=== PATIENT | female | born 1965 | race Two or more races ===

== ENCOUNTER 2016-10-14 20:29 | Emergency (ER) | payer MEDICAID, OTHER ==
[~2016-10-14] VITALS: Ht 160 cm; Wt 98.9 kg
[~2016-10-14 20:29] MED LIST: ARIP5TAB4 PO; CLON0.5T4 PO; ESTR-7 PO; ESTR1TAB9 PO; FLUO10TA PO; HYDR-3026 PO; NAPR500T3 PO; OMEP10CA4 PO; TRAZ150T75 PO
[2016-10-14] MEDS ORDERED: ONDANSETRON HCL/PF 4 MG/2 ML VIAL IVP ONE (21:00)
[2016-10-14] MEDS ORDERED: IV NS 0.9% 1,000 ML BAG IV ONE (21:00)
[2016-10-14] MEDS ORDERED: MORPHINE SULFATE INJ 2 MG/ML DISP.SYRIN IV ONE (21:00)
[2016-10-14] MEDS ORDERED: PIPERACILLIN /TAZOBACTAM 3.375 G in IV D5W 50 ML IV ONE (21:00)
[2016-10-14 21:11] LABS: BASOPHILS # (AUTO) 0.1 /CMM (0.0-0.2); BASOPHILS % (AUTO) 0.5 % (0.0-2.0); EOSINOPHILS # (AUTO) 0.2 /CMM (0.0-0.7); EOSINOPHILS % (AUTO) 2.1 % (0.0-6.0); HEMATOCRIT 45 % (33-45); HEMOGLOBIN 14.7 g/dL (11.5-14.8); LYMPHOCYTES # (AUTO) 3.2 /CMM (0.8-4.8); LYMPHOCYTES % (AUTO) 29.6 % (20.0-44.0); MEAN CORPUSCULAR HEMOGLOBIN 30 PG (26.0-33.0); MEAN CORPUSCULAR HGB CONC 33 g/dl (31.0-36.0); MEAN CORPUSCULAR VOLUME 92 fL (82-100); MONOCYTES # (AUTO) 0.7 /CMM (0.1-1.30); MONOCYTES % (AUTO) 6.2 % (2.0-12.0); NEUTROPHILS # (AUTO) 6.7 /CMM (1.8-8.9); NEUTROPHILS % (AUTO) 61.6 % (43.0-81.0); PLATELET COUNT (AUTO) 301 /CMM (150-450); RED BLOOD CELL COUNT(AUTO) 4.86 MIL/uL (4.0-5.2); WHITE BLOOD COUNT (AUTO) 10.9 K/uL (4.3-11.0)
[2016-10-14] MEDS ORDERED: MORPHINE SULFATE INJ 4 MG/ML DISP.SYRIN ONE (21:12)
[2016-10-14] MEDS ORDERED: ONDANSETRON HCL/PF 4 MG/2 ML VIAL ONE (21:12)
[2016-10-14] MEDS ORDERED: PIPERACILLIN /TAZOBACTAM 3.375 G VIAL IV ONE (21:14)
[2016-10-14 21:19] LABS: CALCIUM, SERUM 8.3 mg/dL (8.5-10.1); CREATININE 0.8 mg/dL (0.6-1.3)
--- NOTE | 2016-10-14 21:20 | NUR ---
PT CAME IN FOR MOUTH ABSCESS. SEEN BY MD. DELA CRUZ. IV ACCESS STARTED. BLOOD DRAWN FOR LABS. SAFETY AND COMFORT MEASURES PROVIDED. WILL MONITOR.
--- NOTE | 2016-10-14 21:25 | NUR ---
PT MEDICATED ORDERED.
[2016-10-14] MEDS ORDERED: IOHEXOL-300 100 ML VIAL IV ONE (21:27)
[2016-10-14] MEDS ORDERED: IV NS 0.9% 250 ML IV ONE (21:27)
--- NOTE | 2016-10-14 21:32 | NUR ---
PT TAKEN TO CT.
--- NOTE | 2016-10-14 22:30 | NUR ---
CALLED SANDY FOR READ ON CT FACIAL
--- NOTE | 2016-10-14 23:00 | NUR ---
IV removed. Catheter intact and site benign. Pressure and 4x4 applied to site. No bleeding noted.
[2016-10-14 23:14] VITALS: BP 162/74
--- NOTE | 2016-10-14 23:14 | NUR ---
Patient discharged to home in stable condition. Written and verbal after care instructions given. Patient verbalizes understanding of instruction.
== END 2016-10-14 23:15 | disposition home or self-care (01) ==
LOC: ER 20:30
DX: K04.7 Periapical abscess without sinus (principal); F32.9 Major depressive disorder, single episode, unspecified; K21.9 Gastro-esophageal reflux disease without esophagitis; F41.0 Panic disorder [episodic paroxysmal anxiety]; F17.200 Nicotine dependence, unspecified, uncomplicated
CPT/HCPCS: 36415; 70487-TC; 80048-TC; 85025-TC; A4606; A6402; J2270; J2405; J2543; J7030; J7050; J7060; Q9967; Z7610